=== PATIENT | male | born 1990 | race Caucasian/White ===

== ENCOUNTER 2019-04-21 15:24 | Inpatient (IN) | payer OTHER ==
[~2019-04-21] VITALS: Ht 195.5 cm; Wt 81.6 kg
--- NOTE | 2019-04-21 16:19 | NUR ---
PATIENT MEETS [facility]. CINA=15. PATIENT IS PRESCHEDULED TO GO TO [facility] FOR RESIDENTIAL TREATMENT ONCE DISCHARGED. [place] STAFF WILL SET UP TRANSPORTATION FOR HIM ON WEDNESDAY. 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
[2019-04-21] MEDS ORDERED: TRAZODONE50 MG PO (16:22)
[2019-04-21] MEDS ORDERED: ABILIFY5 MG PO (16:23)
--- NOTE | 2019-04-21 16:34 | NUR ---
MSADMTime: N A 28 year old MALE admitted to under services of REKHA HERNANDEZ DO. Pt. arrived via ambulatory from [place]. Chief complaint: WITHDRAWAL. ALICIA ESQUEDA
[2019-04-21 17:00] VITALS: BP 134/74
[2019-04-21 17:40] LABS: BASO # 0.1 10*3/uL (0.0-0.1); BASO % 0.6 % (0.0-1.0); EOS # 0.6 10*3/uL (0.0-0.4); EOS % 6.8 % (1.0-4.0); HEMATOCRIT 42.1 % (42.0-52.0); HEMOGLOBIN 13.9 g/dl (14.0-18.0); LYMPH # 2.6 10*3/uL (1.3-4.4); LYMPH % 30.8 % (27.0-41.0); MEAN CELL VOLUME 92.9 fl (80.0-94.0); MEAN CORPUSCULAR HGB 30.7 pg (27.0-31.0); MEAN PLATELET VOLUME 11.4 fl (9.6-12.3); MONO # 0.8 10*3/uL (0.1-1.0); MONO % 8.9 % (3.0-9.0); NEUT # 4.4 10*3/uL (2.3-7.9); NEUT % 52.4 % (47.0-73.0); PLATELET COUNT AUTOMATED 260 10*3/uL (130-400); RED BLOOD COUNT 4.53 10*6/uL (4.50-5.90); RED CELL DISTRI WIDTH 12.8 % (0-14.5); WHITE BLOOD COUNT 8.4 10*3/uL (4.8-10.8)
[2019-04-21 17:51] LABS: INTERNATIONAL NORM RATIO 0.9 (2.0-3.5)
[2019-04-21 17:54] LABS: ALBUMIN 3.7 gm/dl (3.1-4.5); ALKALINE PHOSPHATASE 78 U/L (45-117); BUN 8 mg/dl (7-24); CHLORIDE 102 mmol/L (98-107); CREATININE 0.82 mg/dL (0.70-1.30); POTASSIUM 3.5 mmol/L (3.5-5.1); SGOT/AST 11 IU/L (3-35); SGPT/ALT 27 U/L (12-78); SODIUM 136 mmol/L (136-145); TOTAL PROTEIN 6.9 gm/dL (6.4-8.2)
[2019-04-21 17:57] LABS: BILIRUBIN NEGATIVE (NEGATIVE); BLOOD NEGATIVE (NEGATIVE); CLARITY CLEAR (CLEAR); COLOR YELLOW (YELLOW); GLUCOSE NEGATIVE (NEGATIVE); KETONE NEGATIVE (NEGATIVE); LEUKO ESTERASE NEGATIVE (NEGATIVE); NITRITE NEGATIVE (NEGATIVE); PH 6.5 (5.0-9.0); SPECIFIC GRAVITY 1.025 (1.005-1.030); UROBILINOGEN 0.2 E.U./dl (0.2-1.0)
[2019-04-21 17:58] LABS: ETHYL ALCOHOL < 3.0 mg/dl (<3)
[2019-04-21 18:03] LABS: WBC 0-2 wbc/hpf (0-5)
[2019-04-21 18:04] LABS: CALCIUM OXALATE CRYSTALS 1+
[2019-04-21 18:05] LABS: URINE AMPHETAMINES > 1000 (1000ng/ml); URINE BARBITURATES < 200 (200ng/ml); URINE BENZODIAZEPINES < 200 (200ng/ml); URINE CANNABINOIDS (THC) > 50 (50ng/ml); URINE COCAINE < 300 (300ng/ml); URINE METHADONE < 300 (300ng/ml); URINE OPIATES < 300 (300ng/ml); URINE PHENCYCLIDINE < 25 (25ng/ml)
[2019-04-21 20:00] VITALS: BP 119/65
--- NOTE | 2019-04-21 20:40 | NUR ---
PT RESTING IN BED. NO C/O WITHDRAWAL SYMPTOMS AT THIS TIME. SKIN W/D. CALL LIGHT IN REACH. WILL CON'T TO MONITOR.
--- NOTE | 2019-04-21 22:25 | NUR ---
PT C/O HEARTBURN, MEDICATED WITH MAALOX PO PER PRN ORDER, SEE EMAR. CALL LIGHT IN REACH.
[2019-04-22] VITALS: BP 130/88
--- NOTE | 2019-04-22 00:44 | NUR ---
TOLERATED ROUTINE SUBUTEX PO PER ROUTINE ORDER, SEE EMAR. CALL LIGHT IN REACH.
--- NOTE | 2019-04-22 03:37 | NUR ---
24 HR chart check completed.
--- NOTE | 2019-04-22 04:00 | NUR ---
SLEEPING IN BED. RESP-EASY AND REGULAR. CALL LIGHT IN REACH.
--- NOTE | 2019-04-22 06:00 | NUR ---
SLEEPING IN BED. RESP-EASY AND REGULAR. CALL LIGHT IN REACH.
[2019-04-22 08:00] VITALS: BP 127/75
--- NOTE | 2019-04-22 08:09 | NUR ---
PT ITCHING AND RESTLESS. VISTARIL AND REQUIP GIVEN. WILL CONT TO MONITOR. CALL LIGHT IN REACH.
--- NOTE | 2019-04-22 09:09 | NUR ---
PT RESTING QUIETLY WITH EYES CLOSED. WILL CONT TO MONITOR. CALL LIGHT IN REACH.
--- NOTE | 2019-04-22 10:38 | NUR ---
PER DR SKY GIVE BENADRYL FOR C/O ITCHING. BENADRYL GIVEN AT THIS TIME. WILL CONT TO MONITOR. CALL LIGHT IN REACH.
--- NOTE | 2019-04-22 11:38 | NUR ---
PT RESTING QUIETLY AT THIS TIME. WILL CONT TO MONITOR. CALL LIGHT IN REACH.
[2019-04-22 12:00] VITALS: BP 125/77
[2019-04-22 16:35] VITALS: BP 111/64
--- NOTE | 2019-04-22 21:08 | NUR ---
PT REQUESTING SLEEPING IN BED. MEDICATED WITH TRAZADONE PO PER PRN ORDER, SEE EMAR. CALL LIGHT IN REACH.
[2019-04-23] VITALS: BP 132/67
--- NOTE | 2019-04-23 00:10 | NUR ---
SLEEPING IN BED. RESP-EASY AND REGULAR. MEDICATION SEEMS TO BE EFFECTIVE. CALL LIGHT IN REACH. SEE SHIFT ASSESSMENT.
--- NOTE | 2019-04-23 06:00 | NUR ---
SLEEPING IN BED. RESP-EASY AND REGULAR. NO C/O AT THIS TIME. CALL LIGHT IN REACH.
[2019-04-23 08:00] VITALS: BP 127/85
--- NOTE | 2019-04-23 11:32 | NUR ---
C/O HEADACHE OF 03/11. MOTRIN GIVEN AT THIS TIME. WILL CONT TO MONITOR. CALL LIGHT IN REACH.
--- NOTE | 2019-04-23 12:32 | NUR ---
PT RESTING QUIELTY WITH EYES CLOSED, WILL CONT TO MONITOR. CALL LIGHT IN REACH.
--- NOTE | 2019-04-23 15:00 | NUR ---
PT REQUESTED COUGH DROPS. NEW ORDER RECEIVED. WILL CONT TO MONITOR. CALL LIGHT IN REACH.
[2019-04-23 15:48] VITALS: BP 109/67
[2019-04-23 20:40] VITALS: BP 124/60
--- NOTE | 2019-04-23 23:42 | NUR ---
24 HR chart check completed.
[2019-04-24] VITALS: BP 116/92
[2019-04-24 06:59] LABS: BASO # 0.1 10*3/uL (0.0-0.1); BASO % 0.8 % (0.0-1.0); EOS # 0.6 10*3/uL (0.0-0.4); EOS % 8.1 % (1.0-4.0); HEMATOCRIT 44.5 % (42.0-52.0); HEMOGLOBIN 14.5 g/dl (14.0-18.0); LYMPH # 2.6 10*3/uL (1.3-4.4); LYMPH % 32.7 % (27.0-41.0); MEAN CELL VOLUME 93.5 fl (80.0-94.0); MEAN CORPUSCULAR HGB 30.5 pg (27.0-31.0); MEAN CORPUSCULAR HGB CONC 32.6 g/dl (33.0-37.0); MEAN PLATELET VOLUME 11.5 fl (9.6-12.3); MONO # 0.8 10*3/uL (0.1-1.0); MONO % 10.1 % (3.0-9.0); NEUT # 3.7 10*3/uL (2.3-7.9); NEUT % 47.2 % (47.0-73.0); PLATELET COUNT AUTOMATED 251 10*3/uL (130-400); RED BLOOD COUNT 4.76 10*6/uL (4.50-5.90); RED CELL DISTRI WIDTH 12.7 % (0-14.5); WHITE BLOOD COUNT 7.9 10*3/uL (4.8-10.8)
[2019-04-24 07:10] LABS: CREATININE 0.74 mg/dL (0.70-1.30)
[2019-04-24 08:00] VITALS: BP 126/75
--- NOTE | 2019-04-24 09:05 | NUR ---
Discharge instructions reviewed with patient/family. Patient receptive and verbalizes understanding. Follow-up care arranged. Written instructions given to patient/family. DEEPA PEREZ
--- NOTE | 2019-04-24 10:27 | NUR ---
PT AMBULATORY OFF THE FLOOR TO WAIT OUTSIDE FOR RIDE TO REHAB. [facility] ESCORTED PT.
== END 2019-04-24 10:27 | disposition home or self-care (01) | DRG 897 ==
LOC: EDHOLD 15:24 → 4E 15:24
PROVIDERS: Student in an Organized Health Care Education/Training Program; ADMIT Internal Medicine
DX: F11.23 Opioid dependence with withdrawal (principal); D64.9 Anemia, unspecified; D72.1 Eosinophilia; R00.1 Bradycardia, unspecified; F15.10 Other stimulant abuse, uncomplicated; F12.10 Cannabis abuse, uncomplicated; F41.9 Anxiety disorder, unspecified; F31.9 Bipolar disorder, unspecified; Z79.899 Other long term (current) drug therapy; Z88.5 Allergy status to narcotic agent